=== PATIENT | male | born 1995 | race Caucasian/White ===

== ENCOUNTER → 2021-10-21 09:25 | Outpatient (BNVA) | payer SELFPAY | PROVIDERS: Visit Provider Nurse Practitioner Family | DX: M79.671 Pain in right foot (principal); M25.50 Pain in unspecified joint; Z82.61 Family history of arthritis; M79.10 Myalgia, unspecified site | CPT/HCPCS: 73620; 80053; 84550; 85651; 86140; 86431 ==

== ENCOUNTER 2022-01-07 08:14 | Outpatient (CLI) | payer SELFPAY ==
--- NOTE | 2022-01-07 07:15 | US_ITS ---
WS: [id number] ULTRASOUND SOFT TISSUES RIGHT foot HISTORY: right 4th toe swelling and pain. COMPARISON: None available. TECHNIQUE: 2-D and color Doppler imaging is submitted. Ultrasound is directed to the RIGHT foot near the fourth toe. This is the area of pain. No soft tissue mass or fluid collection identified. No hyperemia. US/US soft tissue/extremity [id number] IMPRESSION: No ultrasound abnormality associated with the fourth toe RIGHT foot. If further evaluation is necessary consider MRI evaluation.
== END 2022-01-07 08:15 | disposition home or self-care (01) ==
PROVIDERS: Visit Provider Nurse Practitioner Family
DX: M79.89 Other specified soft tissue disorders (principal); M79.671 Pain in right foot
CPT/HCPCS: 76882

== ENCOUNTER → 2022-03-04 14:02 | Outpatient (BNVA) | payer SELFPAY | PROVIDERS: Visit Provider Podiatrist Foot & Ankle Surgery | DX: M79.671 Pain in right foot (principal) | CPT/HCPCS: 73630 ==

== ENCOUNTER → 2022-05-12 09:34 | Outpatient (BNVA) | payer SELFPAY | PROVIDERS: Visit Provider Nurse Practitioner Family | DX: Z82.61 Family history of arthritis (principal); M79.10 Myalgia, unspecified site; M25.50 Pain in unspecified joint; M79.671 Pain in right foot | CPT/HCPCS: 80053; 85651; 86140; 86200; 86431; 86705; 86706; 86709; 86803; 87340 ==

== ENCOUNTER → 2023-08-04 11:34 | Outpatient (BNVA) | payer OTHER, SELFPAY | PROVIDERS: Visit Provider Nurse Practitioner Family | DX: M25.50 Pain in unspecified joint (principal); Z13.6 Encounter for screening for cardiovascular disorders | CPT/HCPCS: 80053; 80061; 84443; 85025; 86618; 86666; 86757 ==

== ENCOUNTER → 2024-02-03 14:40 | Outpatient (BNVA) | payer OTHER, SELFPAY | PROVIDERS: PCP Nurse Practitioner Family; Visit Provider Nurse Practitioner Family | DX: M25.50 Pain in unspecified joint (principal) | CPT/HCPCS: 80053; 80061; 82306; 82607; 83735; 84443; 84550; 85025; 85651; 86140; 86160; 86162; 86200; 86235; 86255; 86376; 86431 ==

== ENCOUNTER → 2024-02-22 14:11 | Outpatient (BNVA) | payer OTHER, SELFPAY | PROVIDERS: PCP Nurse Practitioner Family; Visit Provider Nurse Practitioner Family | DX: R70.0 Elevated erythrocyte sedimentation rate (principal) | CPT/HCPCS: 86038 ==

== ENCOUNTER → 2024-10-24 11:49 | Outpatient (BNVA) | payer OTHER, SELFPAY | PROVIDERS: PCP Nurse Practitioner Family; Visit Provider Nurse Practitioner Family | DX: M25.50 Pain in unspecified joint (principal) | CPT/HCPCS: 80053; 80061; 82306; 82607; 83735; 84443; 84550; 85025; 85651; 86038; 86200; 86431 ==